=== PATIENT | female | born 1985 | race Hispanic/Latino ===

== ENCOUNTER → 2018-11-27 | Outpatient (CLI) | payer OTHER ==
--- NOTE | 2018-11-27 17:11 | Diagnostic Imaging Report ---
EXAM: CHEST 2 VIEWS, PA and lateral DATE: 11/27/2018 Time stamp on exam: 4:01 PM INDICATION: Possible pulmonary nodules COMPARISON: None FINDINGS: LINES/TUBES: None LUNGS: No consolidations or edema. No pulmonary nodules identified. PLEURA: No effusions or pneumothorax. HEART AND MEDIASTINUM: Mediastinal prominence likely secondary to lipomatosis. Heart is at the upper limits of normal in size. Focal eventration of the right hemidiaphragm anteriorly. BONES AND SOFT TISSUES: No acute findings. IMPRESSION: No acute thoracic abnormality. Signed by: Dr. Pino Newell DO on 11/27/2018 5:08 PM
== END ==
LOC: RAD 15:44
PROVIDERS: ATTEND Family Medicine
DX: R07.89 Other chest pain (principal)
CPT/HCPCS: 71046